=== PATIENT | female | born 1960 ===

== ENCOUNTER 2017-11-08 19:28 | Emergency (ER) | payer BC ==
[2017-11-08] MEDS ORDERED: Ibuprofen TAB* 600 MG PO ONE (20:52)
[2017-11-08] MEDS ORDERED: Tetan/Diph/Pertus SYR(Tdap)* 0.5 ML SYR(BOOSTRIX) use SYR IM ONE (20:53)
[2017-11-08 20:58] VITALS: BP 115/70
--- NOTE | 2017-11-08 21:03 | UC ---
Knee Pain HPI - HPI Summary HPI Summary: Patient fell this morning at 6:00 while walking her dog. has contusions and abrasions bilateral knees full range of motion. Patient was able to work all day at [employer] on them without any difficulty. is here tonight in the assistance of her sister wanted him rechecked. - History of Current Complaint Chief Complaint: UCTrauma Stated Complaint: RIGHT KNEE INJURY Time Seen by Provider: 11/08/17 20:47 Hx Obtained From: Patient ?: No Onset/Duration: Sudden Onset, Lasting Hours - 12 Location Of Injury: boths knees Pain Intensity: 6 Pain Scale Used: 0-10 Numeric Character: Aching, Throbbing Aggravating Factor(s): Nothing Alleviating Factor(s): Nothing Associated Signs And Symptoms: Positive: Swelling, Bruising Able to Bear Weight: Yes - Allergies/Home Medications Allergies/Adverse Reactions: Allergies Allergy/AdvReac Type Severity Reaction Status Date / Time No Known Allergies Allergy Verified 11/08/17 20:58 Home Medications: Home Medications Atorvastatin* [Lipitor 40 MG*] 40 mg PO DAILY 11/08/17 [History Confirmed ] PMH/Surg Hx/FS Hx/Imm Hx Previously Healthy: Yes Endocrine History: Dyslipidemia - Surgical History Surgical History: None - Family History Known Family History: Positive: None - Social History Occupation: Employed Full-time Lives: With Family Alcohol Use: Occasionally Substance Use Type: None Smoking Status (MU): Never Smoked Tobacco - Immunization History Most Recent Tetanus Shot: >10 years Vaccination Up to Date: No Review of Systems Constitutional: Negative Skin: Bruising - both knees, Other - abrasions on both knee Eyes: Negative ENT: Negative Respiratory: Negative Cardiovascular: Negative Gastrointestinal: Negative Genitourinary: Negative Motor: Negative Neurovascular: Negative Musculoskeletal: Negative Neurological: Negative Psychological: Negative Is Patient Immunocompromised?: No All Other Systems Reviewed And Are Negative: Yes Physical Exam Triage Information Reviewed: Yes Appearance: Well-Appearing, No Pain Distress, Well-Nourished Vital Signs: Initial Vital Signs Temp 98.9 F 11/08/17 20:53 Pulse 79 11/08/17 20:53 Resp 18 11/08/17 20:53 BP 115/70 11/08/17 20:53 Pulse Ox 98 11/08/17 20:53 Vital Signs Reviewed: Yes Eye Exam: Normal Eyes: Positive: Conjunctiva Clear ENT Exam: Normal ENT: Positive: Normal ENT inspection, Hearing grossly normal. Negative: Trismus , Muffled voice, Hoarse voice Dental Exam: Normal Neck exam: Normal Neck: Positive: Supple, Nontender Respiratory Exam: Normal Respiratory: Positive: Chest non-tender, No respiratory distress, No accessory muscle use Cardiovascular Exam: Normal Cardiovascular: Positive: RRR, Pulses Normal, Brisk Capillary Refill Musculoskeletal Exam: Normal Musculoskeletal: Positive: Strength Intact, ROM Intact, Edema @ - swelling and bruising both knees Neurological Exam: Normal Neurological: Positive: Alert, Muscle Tone Normal Psychological Exam: Normal Skin Exam: Normal Skin: Positive: Other - abrasions to both knee Knee Pain Course/Dx - Course Course Of Treatment: Soap and water wash triple antibiotic until Sean wrap Tylenol ibuprofen for pain rest ice elevation follow with PCP when necessary - Differential Dx/Diagnosis Provider Diagnoses: Contusions abrasions bilateral knees, update [facility] Discharge - Sign-Out/Discharge Documenting (check all that apply): Discharge/Admit/Transfer - Discharge Plan Condition: Stable Disposition: HOME Patient Education Materials: Contusion in Adults (ED), Abrasion (ED), R.I.C.E. Treatment (ED) Forms: *Work Release Referrals: Dasha Yusuf MD [Primary Care Provider] - If Needed - Billing Disposition and Condition Condition: STABLE Disposition: HOME
== END 2017-11-08 21:21 | disposition home or self-care (01) ==
LOC: UCCORT 19:28
DX: S80.02XA Contusion of left knee, initial encounter (principal); S80.01XA Contusion of right knee, initial encounter; S80.212A Abrasion, left knee, initial encounter; S80.211A Abrasion, right knee, initial encounter; E78.5 Hyperlipidemia, unspecified; Z79.899 Other long term (current) drug therapy; Z23 Encounter for immunization; W19.XXXA Unspecified fall, initial encounter; Y92.9 Unspecified place or not applicable; Y93.K1 Activity, walking an animal
CPT/HCPCS: 90471; 90715; 99213; A9270-GY; G0463